=== PATIENT | female | born 1950 | race Caucasian/White ===

== ENCOUNTER → 2016-07-27 | Outpatient (CLI) | payer OTHER, MEDICARE | LOC: FIMAGING 07:31 | PROVIDERS: ATTEND Internal Medicine | DX: K80.20 Calculus of gallbladder without cholecystitis without obstruction (principal) ==

== ENCOUNTER → 2016-11-14 | Outpatient (CLI) | payer OTHER, MEDICARE | LOC: FIMAGING 11:21 | DX: Z12.31 Encounter for screening mammogram for malignant neoplasm of breast (principal) | CPT/HCPCS: G0202 ==

== ENCOUNTER → 2017-02-16 | Outpatient (CLI) | payer OTHER, MEDICARE | LOC: FIMAGING 10:15 | PROVIDERS: ATTEND Neurological Surgery | DX: M48.02 Spinal stenosis, cervical region (principal); M50.221 Other cervical disc displacement at C4-C5 level; M50.322 Other cervical disc degeneration at C5-C6 level; M50.323 Other cervical disc degeneration at C6-C7 level; M43.12 Spondylolisthesis, cervical region ==

== ENCOUNTER 2017-02-27 09:16 | Inpatient (IN) | payer OTHER, MEDICARE ==
--- NOTE | 2017-02-27 06:46 | PDHPUP ---
History & Physical Update H&P update statement: This history and physical update is based on an assessment of the patient which was completed after admission or registration (within 24 hours), but prior to the surgery/procedure. H&P update: H&P reviewed & patient examined, no change in patient's condition since H&P completed
[2017-02-27] MEDS ORDERED: ACETAMINOPHEN 500 MG TAB PO ONE (11:53)
[2017-02-27] MEDS ORDERED: ceFAZolin 2 GM/DEXTROSE 100 ML IV ONE (11:53)
[2017-02-27] MEDS ORDERED: GABAPENTIN 300 MG CAP PO ONE (11:53)
[2017-02-27] MEDS ORDERED: LR 1,000 ML IV ONE (11:55)
[2017-02-27] MEDS ORDERED: LIDOCAINE 1% 2 ML INJ ID PRN (11:55)
[2017-02-27] MEDS ORDERED: THROMBIN (BOVINE) 5,000 UNIT VIAL TP ONE (12:13)
[2017-02-27] MEDS ORDERED: BUPIVACAINE 0.25% 30 ML SDV ONE ×2 (12:13→13:24)
[2017-02-27] MEDS ORDERED: CHLORHEXIDINE GLUC HIBICLENS 118 ML BTL TP ONE (12:13)
[2017-02-27] MEDS ORDERED: BACITRACIN 50,000 UNITS/10 ML SYR IRR ONE (12:14)
--- NOTE | 2017-02-27 13:10 | PDANEPAE ---
ANE History of Present Illness Patient presents for ACDF ANE Past Medical History - Cardiovascular History Hx Hypertension: No Hx Arrhythmias: No Hx Chest Pain: No Hx Coronary Artery / Peripheral Vascular Disease: No Hx CHF / Valvular Disease: No Hx Palpitations: No - Pulmonary History Hx COPD: No Hx Asthma/Reactive Airway Disease: No Hx Recent Upper Respiratory Infection: No Hx Oxygen in Use at Home: No Hx Sleep Apnea: No Sleep Apnea Screening Result - Last Documented: Negative - Neurologic History Hx Cerebrovascular Accident: No Hx Seizures: No Hx Dementia: No - Endocrine History Hx Diabetes: No Endocrine History Comment: HYPOTHYROID - Renal History Hx Renal Disorders: No - Liver History Hx Hepatic Disorders: No - Neurological & Psychiatric Hx Hx Neurological and Psychiatric Disorders: Yes Neurological / Psychiatric History Comment: TINGLING LEFT HAND. - Cancer History Hx Cancer: Yes Cancer History Comment: SKIN - Congenital Disorder History Hx Congenital Disorders: No - GI History Hx Gastrointestinal Disorders: No - Other Health History Other Health History: OCCASIONAL SKIN CA - Chronic Pain History Chronic Pain: Yes (LEFT SIDED SCAPULAR, SHOULDER) - Surgical History Prior Surgeries: LUMPECTOMY, BASILAR SQUAMUS CELL SKIN CA ANE Review of Systems Review of Systems: - Exercise capacity METS (RN): 5 METS ANE Patient History - Allergies Allergies/Adverse Reactions: No Known Allergies Allergy (Unverified 02/09/14 17:18) - Home Medications Home medications: home medication list seen and reviewed Home Medications: Alendronate Sodium [Fosamax 70 MG (*)] 70 mg PO WE@0700 01/30/17 [Last Taken 04/05 05:00] Aspirin [Aspirin 81mg (*)] 81 mg PO DAILY 01/30/17 [Last Taken 02/16/17] Calcium Carbonate/Vitamin D3 [CALCIUM 600 + VIT D TABLET] 1 each PO BID [Last Taken 02/16/17] Herbals/Supplements -Info Only 1 ea PO DAILY 01/30/17 [Last Taken 02/16/17] Levothyroxine [Synthroid 75 mcg (*)] 75 mcg PO DAILY06 01/30/17 [Last Taken 04/05 05:00] Multivitamins [Multivitamin (*)] 1 each PO DAILY 01/30/17 [Last Taken 02/16/17] Archie-3 Fatty Acids [Fish Oil 1000 mg (*)] 1,000 mg PO DAILY 01/30/17 [Last Taken 02/16/17] - NPO status NPO Status: no food or drink >8 hours NPO Since - Liquids (Date): 02/27/17 NPO Since - Liquids (Time): 05:00 NPO Since - Solids (Date): 02/26/17 NPO Since - Solids (Time): 20:00 - Anes Hx Anes Hx: no prior problems - Smoking Hx Smoking Status: Never smoked - Family Anes Hx Family Hx Anesthesia Complications: NONE ANE Labs/Vital Signs - Vital Signs Blood Pressure: 146/100 Heart Rate: 57 Respiratory Rate: 18 O2 Sat (%): 93 Height: 163.83 cm Weight: 62.596 kg ANE Physical Exam - Airway Neck exam: FROM Mallampati Score: Class 1 Mouth exam: normal dental/mouth exam - Pulmonary Pulmonary: no respiratory distress - Cardiovascular Cardiovascular: regular rate and rhythym - ASA Status ASA Status: II ANE Anesthesia Plan Anesthesia Plan: general endotracheal anesthesia (RBA discussed)
[2017-02-27] MEDS ORDERED: REMIFENTANIL HCL 1 MG VIAL ONE ×2 (13:20)
[2017-02-27] MEDS ORDERED: fentaNYL 100 MCG/2 ML INJ ONE ×3 (13:20→16:22)
[2017-02-27] MEDS ORDERED: PROPOFOL 200 MG/20 ML VIAL ONE (13:21)
[2017-02-27] MEDS ORDERED: PROPOFOL/EMULSION 500 MG/50 ML BOTTLE IV ONE (13:21)
[2017-02-27] MEDS ORDERED: ROCURONIUM 50 MG/5 ML VIAL ONE (13:31)
[2017-02-27] MEDS ORDERED: LIDOCAINE 2% 5 ML SDV ONE (13:31)
[2017-02-27] MEDS ORDERED: LACTULOSE 20 GM/30 ML UDCUP PO PRN (13:35)
[2017-02-27] MEDS ORDERED: HYDROmorphONE/DILAUDID 6 MG/30 ML PCA IV PRN (13:35)
[2017-02-27] MEDS ORDERED: ONDANSETRON 4 MG/2 ML VIAL IVP PRN ×2 (13:35→16:30)
[2017-02-27] MEDS ORDERED: NALOXONE HCL 0.4 MG/ML INJ IVP PRN ×2 (13:35→16:30)
[2017-02-27] MEDS ORDERED: diphenhydrAMINE 25 MG CAP PO PRN (13:35)
[2017-02-27] MEDS ORDERED: BISACODYL 10 MG SUPP PR PRN (13:35)
[2017-02-27] MEDS ORDERED: HYDROmorphONE/DILAUDID 1 MG/ML INJ IVP PRN (13:35)
[2017-02-27] MEDS ORDERED: ONDANSETRON DISINTEGRATING 4 MG TAB PO PRN (13:35)
[2017-02-27] MEDS ORDERED: MAGNESIUM HYDROXIDE 30 ML UDCUP PO PRN (13:35)
[2017-02-27] MEDS ORDERED: POLYETHYLENE GLYCOL 3350 17 GM PKT PO PRN (13:35)
[2017-02-27] MEDS ORDERED: NS W/ 20 KCl/L 1,000 ML IV SCH (13:45)
[2017-02-27] MEDS: fentaNYL 100 MCG/2 ML INJ IVP PRN ×2 (16:20→16:27)
--- NOTE | 2017-02-27 16:26 | POSTANESTH ---
Post Anesthetic Evaluation Cardiovascular Status: Normal, Stable Respiratory Status: Normal, Stable Level of Consciousness/Mental Status: Can Participate in Eval Pain Control: Adequate, Prn Tx Ordered Nausea/Vomiting Control: Adequate, Prn Tx Ordered Complications Possibly Related to Anesthesia: None Noted
[2017-02-27] MEDS ORDERED: OXYCODONE/APAP 5/325 TAB PO PRN (16:30)
[2017-02-27] MEDS ORDERED: LR 500 ML IV PRN (16:30)
[2017-02-27] MEDS ORDERED: HYDROCODONE/APAP 5/325 TAB PO PRN (16:30)
[2017-02-27] MEDS ORDERED: HYDROmorphONE/DILAUDID 1 MG/ML INJ ONE (16:34)
--- NOTE | 2017-02-27 16:35 | SOAPPROG ---
SOAP Progress Note Assessment/Plan: Post Op Visit: S: Awake and alert. NAD. Pt with expected neck pain O: AFVSS/PERRLA/EOMI no droop CN 2-12 grossly intact 5/5 BUE/BLE = CDI neck soft and supple CDI A/P: 66 yo female that is s/p ACDF C5/6 and C6/7 -orders in place -call with any questions or concerns -collar at all times -call NS with any changes or issues 02/27/17 16:32 Objective: Vital Signs Temp Pulse Resp BP Pulse Ox 36.5 C 57 L 18 146/100 H 93 02/06/17 10:11 02/27/17 13:09 02/27/17 13:09 02/27/17 13:09 02/27/17 13:09 ICD10 Worksheet Patient Problems: Problems Problem Status Onset Arthrodesis status Acute Cervical radiculitis Acute Cervical stenosis of spine Acute Cervicalgia Acute - ICD10 Problem Qualifiers (1) Cervicalgia (2) Cervical stenosis of spine (3) Cervical radiculitis (4) Arthrodesis status
[2017-02-27] MEDS: HYDROmorphONE/DILAUDID 1 MG/ML INJ IVP PRN ×2 (16:37→17:00)
[2017-02-27] MEDS ORDERED: OXYCODONE/APAP 5/325 TAB ONE (16:51)
--- NOTE | 2017-02-27 17:54 | GOP ---
[f rep st] OPERATIVE REPORT DATE OF OPERATION: 02/27/2017 SURGEON: Michelle Linares MD NEUROSURGEON: Michelle Linares MD. CHANNEL DEVELOPMENT MANAGER: Damián Amado PA-C. PREOPERATIVE DIAGNOSIS: Cervical spondylosis with right cervical foraminal stenosis, C5-6; bilateral foraminal stenosis, C6-7. POSTOPERATIVE DIAGNOSIS: PROCEDURE PERFORMED: Anterior cervical diskectomy, decompression, arthrodesis C5-6, C6-7 ([id number], [id number]). Anterior cervical instrumentation C5, 6, 7, same incision bone graft harvest, placement of biom echanical intervertebral device C5-6, C6-7, microscope. FINDINGS: ESTIMATED BLOOD LOSS: 25 cc. INDICATIONS: The patient is a mature female, who had bilateral radicular symptoms, really left arm m uch more than right and evidence of cervical spondylosis at C5-6, C6-7 with degenerative disc changes in the disc at 5-6,6-7. She had right foraminal stenosis that was worse at C5-6, and bilateral fora prabhjot stenosis at C6-7. She had trace spondylolisthesis of C7 on T1 as well as anterior listhesis of C4 on C5, but there was really no significant compressive lesion at these levels. I suggested a 2-l evel ACDF at 5-6, 6-7. The risk of dysphagia, esophageal injury, carotid injury, recurrent laryngeal nerve injury, pseudoarthrosis adjacent segment disease, and possible need for future surgery was dis cussed. She knew that there was a chance she would continue to be symptomatic despite surgery. DESCRIPTION OF PROCEDURE: Patient was taken to the operating room, placed in supine position. Gener al anesthesia was begun. A midline shoulder roll was placed. Her head was carefully positioned in t he horseshoe hogshead cooper. Care was taken to pad all points of contact. Her neck was sterilely prepp ed and draped in the usual fashion. A localizing x-ray was taken. A right paramedian incision was m anthony in the inferior neck crease. Local anesthetics had been used in the skin. The subcutaneous tiss ue was dissected with Bovie cautery down through the platysma. We used a combination of blunt and sh kenrick dissection medial to the sternocleidomastoid and lateral to the strap muscles, down to the prever tebral space. The omohyoid muscle was swept inferiorly. We dissected the longus colli muscles off t he spine at 5-6, 6-7 and removed the ventral osteophytes at C5-6, C6-7. We harvested some of these o steophytes for autologous grafting purposes. We then placed distraction pins at C6 and C7. Shot a l ocalizing x-ray, confirmed our location. We then removed the C6-7 disk and the cartilaginous endplat es. We drilled and harvested subchondral bone for autologous grafting purposes and then took this au tologous bone, and fashioned it inside a 7 mm x 12 mm x 14 mm implant for the C6-7 level. We opened the posterior and longitudinal ligament and decompressed the thecal sac as well as the neural foramen bilaterally at C6-7. There was severe bilateral foraminal stenosis and we decompressed along the C7 nerve roots. A nice fit was obtained. We took the implant and inserted at C6-7. We then moved our distraction pins and went to C5-6, where we did likewise, removed the disk, drilled the cartilaginou s endplates off, drilled and harvested subchondral bone, opened the PLL, decompressed the thecal sac and the neural foramina bilaterally and here indeed the right foramen was worse than the left. We ch ose the same size implant 7 x 12 x 14, packed with autologous bone dust, fashioned it to fit in the s pace and inserted it at C5-6. We then removed the distraction pins, placed Gelfoam bullets in the ho les that remained, and then prepped the ventral surface of the vertebral bodies for acceptance of the plate. We chose a 36 mm plate. It was bent to increase lordosis. Placed a single 12 mm screw at C 5, a single 12 mm screw at C7, shot an x-ray. They were in excellent position, put the remaining [address] for a total of 6. They were locked according to company specification. A final x-ray was taken. The plate was in excellent position. We then achieved meticulous hemostasis and then re moved our retractor. We placed the dysphagia protocol study fluid into the prevertebral space and th en closed the incision in multiple layers using Vicryl suture. Steri-Strips were applied to the skin . The patient was reversed from anesthesia, extubated, and transferred to recovery room in stable co ndition. COMPLICATIONS: None. INSTRUMENTATION USED: A snowcap Vimal system manufactured by [employer]. /[id number]/MODL
[2017-02-27] MEDS: ACETAMINOPHEN 500 MG TAB PO SCH ×2 (18:11→23:25)
[2017-02-27] MEDS: METHOCARBAMOL 750 MG TAB PO PRN (20:26)
[2017-02-27] MEDS: FAMOTIDINE 20 MG TAB PO SCH (20:26)
[2017-02-27] MEDS: SENNOSIDES/DOCUSATE SODIUM TAB PO SCH (20:26)
[2017-02-27] MEDS: HYDROCODONE/APAP 5/325 TAB PO PRN (20:26)
[2017-02-27] MEDS: ceFAZolin 2 GM/DEXTROSE 100 ML IV SCH (20:27)
[2017-02-28] MEDS: ACETAMINOPHEN 500 MG TAB PO SCH ×4 (00:23→22:28)
[2017-02-28] MEDS: LEVOTHYROXINE 75 MCG TAB PO SCH (05:00)
[2017-02-28] MEDS: ceFAZolin 2 GM/DEXTROSE 100 ML IV SCH (05:00)
[2017-02-28] MEDS: HYDROCODONE/APAP 5/325 TAB PO PRN ×2 (05:02→09:28)
[2017-02-28] MEDS: METHOCARBAMOL 750 MG TAB PO PRN ×2 (06:17→17:20)
--- NOTE | 2017-02-28 08:55 | NEUSURGPN ---
Date of Surgery: 02/27/17 Post Op Day: 1 Assessment/Plan: 66 yo female that is s/p ACDF C5/6 and C6/7 -Patient doing well this, am. Some left scapular pain -collar at all times -ok to discharge home pending PT/OT/ST recommendations -need to get post op xrays prior to discharge -call NS with any changes or issues Subjective: Patient doing well, left scapular pain Objective: AxO x3 PERRLA EOMI 5/5 BUE, BLE Sensation intact to light touch BLE Dressing CDI Neuro Check Frequency: per routine - Physician Discussed Patient with Dr.: Vijay Patient Seen by : Vijay Neurosurgery Physical Exam - Vitals, I&O, Labs I and O 02/27/17 02/28/17 03/01/17 05:59 05:59 05:59 Intake Total 2255 Output Total 25 Balance 2230 Weight 62.596 kg Intake: Oral (ml) 150 IV Intake (ml) 1100 IV Infused (ml) 1005 NS W/ 20 KCl/L 1,000 ml @ 900 75 mls/hr IV CONT LIOR Rx #:[id number] ceFAZolin 2 GM/DEXTROSE 105 100 ml @ 200 mls/hr IV Q8H LIOR Rx#:[id number] Output: Estimated Blood Loss (ml) 25 Vital Signs Temp Pulse Resp BP Pulse Ox 36.8 C 58 L 16 123/68 H 92 02/28/17 07:40 02/28/17 07:40 02/28/17 07:40 02/28/17 07:40 02/28/17 07:40 ICD10 Worksheet Patient Problems: Problems Problem Status Onset Arthrodesis status Acute Cervical radiculitis Acute Cervical stenosis of spine Acute Cervicalgia Acute
[2017-02-28] MEDS: SENNOSIDES/DOCUSATE SODIUM TAB PO SCH ×2 (09:27→20:50)
[2017-02-28] MEDS: FAMOTIDINE 20 MG TAB PO SCH ×2 (09:28→20:51)
[2017-02-28] MEDS: DIAZEPAM 5 MG TAB PO PRN ×2 (13:05→20:50)
[2017-02-28] MEDS ORDERED: KETOROLAC 15 MG/1 ML SDV IVP ONE (14:15)
--- NOTE | 2017-02-28 14:31 | ASMTCMCOM ---
CM Note CM Note Notes: Pt rec outpatient, OT and PAYROLL COORDINATOR evals pending. CM to follow for d/c needs. Date Signed: 02/28/2017 02:30 PM Electronically Signed By:FRANCESCO Sunshine
[2017-02-28] MEDS ORDERED: KETOROLAC 15 MG/1 ML SDV IVP PRN (17:33)
[2017-03-01] MEDS: DIAZEPAM 5 MG TAB PO PRN (03:51)
[2017-03-01] MEDS: oxyCODONE IR 5 MG TAB PO PRN ×2 (03:51→05:12)
[2017-03-01] MEDS: ACETAMINOPHEN 500 MG TAB PO SCH ×2 (05:11→12:37)
[2017-03-01] MEDS: LEVOTHYROXINE 75 MCG TAB PO SCH (05:12)
--- NOTE | 2017-03-01 09:02 | NEUSURGPN ---
Date of Surgery: 02/27/17 Post Op Day: 2 Assessment/Plan: Assessment: 66 yo female that is s/p ACDF C5/6 and C6/7, POD#2 - neuro stable - having left scapular pain into the left arm, continue with current pain regimen (Oxycodone/Valium) - postop x-rays: hardware in good placement - cervical hard collar in place - dispo: home later today if continues to progress well Discussed with Dr. Linares Subjective: Sitting in bedside chair. Having left scapular pain that radiates into the left arm. Objective: Awake. Alert. PERRL. EOMI Facial expression symmetrical Muscle strength full at 5/5 sensation intact Incision with dressing c/d/i - Physician Discussed Patient with : Vijay Neurosurgery Physical Exam - Vitals, I&O, Labs I and O 02/28/17 03/01/17 03/02/17 05:59 05:59 05:59 Intake Total 2255 350 Output Total 25 Balance 2230 350 Weight 62.596 kg Intake: Oral (ml) 150 350 IV Intake (ml) 1100 IV Infused (ml) 1005 NS W/ 20 KCl/L 1,000 ml @ 900 75 mls/hr IV CONT LIOR Rx #:[id number] ceFAZolin 2 GM/DEXTROSE 105 100 ml @ 200 mls/hr IV Q8H LIOR Rx#:[id number] Output: Estimated Blood Loss (ml) 25 Other: Intake Quantity Yes Sufficient Number of Voids Toilet 3 Vital Signs Temp Pulse Resp BP Pulse Ox 36.3 C 74 18 145/85 H 94 03/01/17 08:00 03/01/17 08:00 03/01/17 08:00 03/01/17 08:00 03/01/17 08:00 ICD10 Worksheet Patient Problems: Problems Problem Status Onset Arthrodesis status Acute Cervical radiculitis Acute Cervical stenosis of spine Acute Cervicalgia Acute
[2017-03-01] MEDS: SENNOSIDES/DOCUSATE SODIUM TAB PO SCH (09:57)
[2017-03-01] MEDS: FAMOTIDINE 20 MG TAB PO SCH (09:57)
[2017-03-01] MEDS: METHOCARBAMOL 750 MG TAB PO PRN ×2 (09:58→15:22)
[2017-03-01 12:17] VITALS: BP 124/71; PULSE 67; RESP 16; TEMP 98.1; O2SAT 97
--- NOTE | 2017-03-01 13:52 | ASMTCMCOM ---
CM Note CM Note Notes: PT medically stable for d/c. OT/PT/DOWEL STICKER OPERATOR clear pt for home. No CM d/c needs identified. Date Signed: 03/01/2017 01:52 PM Electronically Signed By:FRANCESCO Sunshine
--- NOTE | 2017-03-01 13:52 | ASDISCHSUM ---
Discharge Information Plan Status:Home with No Needs Medically Cleared to Leave: Discharge Date: CM D/C Disposition:Home, Routine, Self-Care ADT D/C Disposition:Home, Routine, Self-Care Projected Discharge Date: Transportation at D/C: Discharge Delay Reason: Follow-Up Date: Discharge Slot: Final Diagnosis: Placement Information Patient Contact Information Contact Name:MIK Relationship: Address:[address] City:[facility] Phone: [facility]/Zip Code:[place] [address] Email: Financial Information Financial Class: Primary Plan Desc:MEDICARE INPATIENT Primary Plan Number:[id number] Secondary Plan Desc:[employer]/MDR SUPPLEMENT Secondary Plan Number:[id number] Assessment Information [facility] CM Progress Note CM Note CM Note Notes: Pt rec outpatient, OT and SR. MANAGER evals pending. CM to follow for d/c needs. Date Signed: 02/28/2017 02:30 PM Electronically Signed By:FRANCESCO Sunshine Intervention Information Intervention Type:*SVETA-Signed Date of Service:02/28/2017 09:22 AM Patient Type:Observation Staff Member:Aminah Lee Hours: Discipline: Severity: Comment:
[2017-03-02] MEDS ORDERED: ENOXAPARIN 40 MG/0.4 ML SYR SC SCH (09:00)
== END 2017-03-01 15:22 | disposition home or self-care (01) | DRG 473 ==
LOC: F3E 11:28 → F3N 17:15 → OBSVTOIN 02-28 16:51
PROVIDERS: ADMIT Neurological Surgery; ATTEND Neurological Surgery
PROC: 0RB30ZZ Excision of Cervical Vertebral Disc, Open Approach (ICD-10-PCS; principal; 2017-02-27 13:30)
PROC: 01N10ZZ Release Cervical Nerve, Open Approach (ICD-10-PCS; principal; 2017-02-27 13:30)
PROC: 00NW0ZZ Release Cervical Spinal Cord, Open Approach (ICD-10-PCS; principal; 2017-02-27 13:30)
PROC: 0RG20A0 Fusion of 2 or more Cervical Vertebral Joints with Interbody Fusion Device, Anterior Approach, Anterior Column, Open Approach (ICD-10-PCS; principal; 2017-02-27 13:30)
DX: M47.22 Other spondylosis with radiculopathy, cervical region (principal); M50.10 Cervical disc disorder with radiculopathy, unspecified cervical region; M48.02 Spinal stenosis, cervical region; E03.9 Hypothyroidism, unspecified
CPT/HCPCS: 92526-GN; 92610-GN; 97161-GP; 97165-GO; C1713; G8978-GP-CI; G8979-GP-CI; G8980-GP-CI; G8987-GO-CI; G8988-GO-CI; G8989-GO-CI; G8996-GN-CH; G8997-GN-CH; G8998-GN-CH; J0171; J0690; J1170; J1885; J2704; J3010

== ENCOUNTER → 2017-04-10 | Outpatient (CLI) | payer OTHER, MEDICARE | LOC: FIMAGING 08:39 | PROVIDERS: ATTEND Nurse Practitioner | DX: Z09 Encounter for follow-up examination after completed treatment for conditions other than malignant neoplasm (principal); Z98.1 Arthrodesis status ==

== ENCOUNTER → 2017-06-18 | Outpatient (CLI) | payer OTHER, MEDICARE | LOC: FIMAGING 10:16 | PROVIDERS: ATTEND Physician Assistant | DX: M47.22 Other spondylosis with radiculopathy, cervical region (principal); M47.23 Other spondylosis with radiculopathy, cervicothoracic region; M46.92 Unspecified inflammatory spondylopathy, cervical region; M46.93 Unspecified inflammatory spondylopathy, cervicothoracic region; Z98.1 Arthrodesis status ==

== ENCOUNTER → 2017-11-19 | Outpatient (CLI) | payer OTHER, MEDICARE | LOC: FIMAGING 09:22 | PROVIDERS: ATTEND Internal Medicine | DX: Z12.31 Encounter for screening mammogram for malignant neoplasm of breast (principal) ==

== ENCOUNTER → 2018-03-07 | Outpatient (CLI) | payer OTHER, MEDICARE | LOC: FIMAGING 15:18 | PROVIDERS: ATTEND Neurological Surgery | DX: Z98.1 Arthrodesis status (principal) ==